=== PATIENT | male | born 1970 | race Two or more races ===

== ENCOUNTER 2021-06-12 17:13 | Emergency (ER) | payer OTHER ==
[~2021-06-12] VITALS: Ht 167.6 cm; Wt 97.0 kg
[2021-06-12] MEDS ORDERED: cefTRIAXone IM 500 MG VIAL. IM ONE (17:30)
[2021-06-12] MEDS ORDERED: DOXYCYCLINE HYCLATE 100 MG TABLET PO ONE (17:30)
[2021-06-12] MEDS ORDERED: metroNIDAZOLE 500 MG TABLET PO ONE (17:30)
--- NOTE | 2021-06-12 17:50 | PHYS DOC ---
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 Patient states his got diagnosed with trichomonas last week on Saturday. 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 Denies dysuria or hematuria [] Musculoskeletal: Denies back pain or joint pain [] Integument: Denies rash or skin lesions [] Neurologic: Denies headache, focal weakness or sensory changes [] All other systems were reviewed and found to be within normal limits, except as documented in this note. 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) Current Medications Current Medications Current Medications Medications (Trade) Dose Ordered Sig/Sarai Start Time Stop Time Status Last Admin Dose Admin Ceftriaxone Sodium (Rocephin Im) 500 mg 1X ONCE 06/12/21 17:30 06/12/21 17:35 DC 06/12/21 17:41 500 MG Doxycycline Hyclate (Vibra-Tab) 100 mg 1X ONCE 06/12/21 17:30 06/12/21 17:35 DC 06/12/21 17:41 100 MG Metronidazole (Flagyl) 2,000 mg 1X ONCE 06/12/21 17:30 06/12/21 17:35 DC 06/12/21 17:41 2,000 MG (RODIDANIA Markus INSULATION MACHINE OPERATOR) Allergies Allergies Allergies Coded Allergies Type Severity Reaction Last Updated Verified No Known Drug Allergies 06/12/21 No 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 [] Abdomen: Bowel sounds normal, soft, no tenderness, no masses, no pulsatile masses. [] Skin: Warm, dry, no erythema, no rash. [] Back: No tenderness, no CVA tenderness. [] Extremities: No tenderness, no cyanosis, no clubbing, ROM intact, no edema. [] Neurologic: Alert and oriented X 3, normal motor function, normal sensory function, no focal deficits noted. [] Psychologic: Affect normal, judgement normal, mood normal. [] (IDANIA VELASCO APRN) Current Patient Data Vital Signs Vital Signs Date Time Temp Pulse Resp B/P (MAP) Pulse Ox O2 Delivery O2 Flow Rate FiO2 06/12/21 17:22 18 100 Room Air (IDANIA VELASCO APRN) EKG EKG [] (IDANIA VELASCO APRN) Radiology/Procedures Radiology/Procedures [] (IDANIA VELASCO APRN) Heart Score C/O Chest Pain: N/A Risk Factors: Risk Factors: DM, Current or recent (<one month) smoker, HTN, HLP, family history of CAD, obesity. Risk Scores: Risk Factors: DM, Current or recent (<one month) smoker, HTN, HLP, family history of CAD, obesity. (IDANIA VELASCO APRN) Course & Med Decision Making Course & Med Decision Making Pertinent Labs and Imaging studies reviewed. (See chart for details) This is a 51-year-old male patient presenting to the ED today with STD concern, was diagnosed with trichomonas last week. Patient has no symptoms. Patient was tested and treated for STDs. Will be contacted with results if positive. STD education provided. (IDANIA VELASCO APRN) Dragon Disclaimer Dragon Disclaimer This electronic medical record was generated, in whole or in part, using a voice recognition dictation system. (IDANIA VELASCO APRN) Attending Co-Sign The patient was seen and interviewed as well as examined at the bedside. The chart was reviewed. The case was discussed. Agree with the plan of care. (ANEL GUTIERREZ DO) Departure Departure: Impression: Primary Impression: Concern about STD in male without diagnosis Disposition: HOME / SELF CARE / HOMELESS Condition: STABLE Referrals: PCP,NO (PCP) follow up with the health department for further STD concerns Patient Instructions: Sexually Transmitted Disease Additional Instructions: You were treated for STDs in the emergency room. Please do not have any intercourse for at least 2 weeks. Please ensure all your partners were notified and treated. Please do not have any unprotected sex. Follow-up with the health department for further concerns Scripts Doxycycline Hyclate (DOXYCYCLINE HYCLATE) 100 Mg Tablet 1 TAB PO BID, #14 TAB Prov: IDANIA VELASCO APRN 06/12/21 IDANIA VELASCO APRN Jun 12, 2021 17:50 ANEL GUTIERREZ DO Jun 14, 2021 15:09
[2021-06-12] MEDS ORDERED: DOXY100T PO (17:59)
[2021-06-12 18:12] LABS: BILIRUBIN,URINE NEG (NEG); CLARITY,URINE CLEAR; COLOR,URINE YELLOW; GLUCOSE,URINE NEG (NEG)
[2021-06-12 18:13] LABS: BACTERIA,URINE 0 /HPF (0-FEW); NITRITE,URINE NEG (NEG); RBC,URINE 0 /HPF (0-2); UROBILINOGEN,URINE 0.2 mg/dL (0.2 mg/dL); WBC,URINE 0 /HPF (0-4)
== END 2021-06-12 18:24 | disposition home or self-care (01) ==
LOC: ER 17:13
DX: Z20.2 Contact with and (suspected) exposure to infections with a predominantly sexual mode of transmission (principal)
CPT/HCPCS: 36415; 81001; 87491; 87591; 96372; 99283; J0696